=== PATIENT | female | born 1990 | race Two or more races ===

== ENCOUNTER 2024-10-01 00:51 | Observation (INO) | payer MEDICAID, OTHER ==
--- NOTE | 2024-10-01 03:21 | DVHDS2 ---
Physician Discharge Progress N Final Diagnosis: False labor Secondary Diagnosis: Anemia in Problems List: (1) False labor after 37 completed weeks of gestation (2) Multigravida (3) JULIAN (amniotic fluid index) borderline low (4) Anemia affecting in third trimester Commentary: Commentary Subjective 33yo G2,(1,0,0,1) IUP 37w5d Presents to the Place with report of lower supra pubic pain. Denies VB/LOF/ States mild cramping Reports pain 8/10 with contractions. Being treated for Bacterial Vaginosis with ANBX She reports normal movements, Receives [facility] with [facility] in [place] Reports no past surgery. Hx Spontaneous Vaginal Delivery 9 year ago NST and JULIAN Weekly for Borderline low JULIAN Last previous JULIAN 5.5 Anemia in , last Hgb 8.6 ROS: Neurological: Unremarkable except as noted in Presenting problem/ CC above Respiratory: reports no respiratory symptom, no SOB Cardiovascular: no palpitation, chest pain or easy fatigue : No vaginal or urinary symptom Objective A&O x3, NAD, well groomed. pleasant. Appropriate and normal mood and affect Afebrile, VSS Labs Test 10/01/24 03:00 Range/Units Urine Color Colorless Yellow Urine Clarity Clear Clear Urine pH 6.5 5.0-9.0 Urine Specific [place] 1.007 1.001-1.035 Urine Protein Negative Negative Urine Ketones Negative Negative Urine Blood Negative Negative /uL Urine Nitrite Negative Negative Urine Bilirubin Negative Negative Urine Urobilinogen Normal Negative mg/dL Urine Leukocyte Esterase Negative Negative /uL Urine RBC None seen 0 - 4 /hpf Urine Microscopic WBC 1 0-5 /HPF Urine Squamous Epithelial Cells Few <5 /hpf Urine Bacteria Few H None Seen /hpf Urine Glucose Normal Normal mg/dL Vaginal WBC (Wet Prep) Rare Vaginal RBC (Wet Prep) Rare Vaginal Epithelial Cells (Wet Prep) Few Vaginal Bacteria (Wet Prep) Few Vaginal Trichomonas (Wet Prep) Not present Vaginal Yeast (Wet Prep) None seen Vaginal Clue Cells (Wet Prep) Rare Physical: Respiration unlabored Heart and lungs sounds: normal Abdomen: Gravid, non-tender to palpation. Extremities: No edema SVE: FT/Thick/High Assessment: IUP at 37w5d Supra Pubic pain Category I FHR tracing FHR 130 Moderate Variability Accels 15 bpm X 15 bpm Decels none noted Uterine: Contractions Q6 min lasting 40-60 seconds Sherrill Payne contractions Plan: Wet Mount and U/A Wet mount results rare clue cells U/A Clear Discharge home Keep scheduled appointment with OB provider as scheduled NST / JULIAN Weekly for Low JULIAN Pt education PTL/FKC/PRe-E , verbalizes understanding Copy of record , Evaluate GBS status in Condition on Discharge: Stable Disposition: Home Discharge Instructions: Diet: Regular Activity: No Restrictions, As Tolerated Medications: [place] Percribed ANBX for BV Follow Up Care: Discharge Statement: Routine care with [facility] Discharge Care Plan Problem Pain Supra Pubic Pelvic pain Goals Pain relieved, Reduction of pain Know Procedures, Know Self care, Know Condition Instructions Notify MD of any issues, Keep list of meds w/ you Visit Coding OBGYN Date of Service: Oct 01, 2024 Billing Provider: PERCY MUSE CNM SPLUNK DEVELOPER Common Visit Codes: 16301-MROUFRY OBS CARE (MOD) PERCY MUSE 2024 03:21
--- NOTE | 2024-10-01 03:35 | DVH ---
LIMITED OB ULTRASOUND > 14 WKS: HISTORY: EFW. L PNC TECHNIQUE: Multiple real-time grayscale images of the gravid uterus with duplex Doppler color flow an d M-mode spectral analysis. COMPARISON: None FINDINGS: Single intrauterine gestation. heart rate measures 148-150 beats per minute. Presentation is cephalic. Placenta is anterior without evidence of previa. Biophysical profile: breathin/2 movement: 2/2 tone: 2/2 Amniotic fluid: 2/2 JULIAN: 5.5 cm biometry: BPD: 9.3 cm, 38 weeks 0 days HC: 33.2 cm, 37 weeks 6 days AC: 34.2 cm, 38 weeks 1 day FL: 7.3 cm, 37 weeks 1 day EFW: 3323 g, 61st percentile EGA: 37 weeks 6 days, TYRELL 10/16/2024 IMPRESSION: 1. Intrauterine gestation measuring at 37 weeks 6 days (TYRELL 10/16/2024). Clinical and sonographic da eduardo different by 1 day. 2. Normal biophysical profile score of 8/8. 3. Borderline low amniotic fluid index.
[2024-10-01 03:40] LABS: Urine Protein, UAD Negative (Negative)
[2024-10-01 04:31] LABS: Vaginal Trichomonas Not Present
[2024-10-01 04:34] LABS: Vaginal Bacteria Few
[2024-10-01 04:36] LABS: Vaginal Clue Cells Rare; Vaginal Epithelial Cells Few
[2024-10-01] MEDS ORDERED: PREN1TAB71 OR (13:50)
== END 2024-10-01 05:07 | disposition home or self-care (01) ==
LOC: EDBD 00:51 → LDRP 00:51
PROVIDERS: ADMIT Obstetrics & Gynecology; ATTEND Obstetrics & Gynecology
DX: O47.1 False labor at or after 37 completed weeks of gestation (principal); O99.013 Anemia complicating pregnancy, third trimester; D64.9 Anemia, unspecified; O42.92 Full-term premature rupture of membranes, unspecified as to length of time between rupture and onset of labor; O09.523 Supervision of elderly multigravida, third trimester; Z3A.37 37 weeks gestation of pregnancy; Z98.890 Other specified postprocedural states; Z79.899 Other long term (current) drug therapy
CPT/HCPCS: 59025; 76805; 76819; 81001; 81002; 87210; 94760; G0378

== ENCOUNTER 2024-10-01 13:30 | Inpatient (IN) | payer MEDICAID ==
[~2024-10-01] VITALS: Ht 152.4 cm; Wt 73.0 kg
[2024-10-01] MEDS ORDERED: PREN1TAB71 OR (13:50)
[2024-10-01] MEDS ORDERED: LACT. RINGERS/OXYTOCIN 20UNITS 1,000 ML IV SCH (14:45)
[2024-10-01] MEDS ORDERED: BUTORPHANOL TARTRATE 2 MG/1 ML VIAL IV PRN ×2 (14:45)
[2024-10-01] MEDS ORDERED: LIDOCAINE 2%HCL (LOCAL ANESTH.) INJ 20ML MDV IJ PRN (14:45)
[2024-10-01] MEDS ORDERED: TERBUTALINE SULFATE 1 MG/ML 1ML VIAL SC PRN (14:45)
[2024-10-01] MEDS: PHISODERM TOP SOLN 240ML BTL TOP PRN (15:15)
[2024-10-01] MEDS: WITCH HAZEL-GLYCERIN PAD TOP PRN (15:15)
[2024-10-01] MEDS: DERMOPLAST 60ML BOTTLE TOP PRN (15:15)
[2024-10-01] MEDS: LACTATED RINGER'S 1,000 ML IV SCH (15:16)
[2024-10-01] MEDS: PENICILLIN G POT 5MIL/D5 50ML 50 ML IV ONE (15:21)
[2024-10-01 15:33] LABS: Hematocrit 28.6 % (36.0-46.0); Hemoglobin 9.2 g/dL (12.2-16.2); Mean Corpuscular Hemoglobin 22.6 pg (28.0-32.0); Mean Corpuscular Volume 70.3 fL (80.0-100.0); Nucleated Red Blood Cells % 0.0 %
[2024-10-01 15:46] LABS: Alanine Aminotransferase 10 U/L (7-40); Albumin 3.9 g/dL (3.2-4.8); Anion Gap 10 (5-15); BUN/Creatinine Ratio 12.3 (10.0-20.0); Calcium 8.9 mg/dL (8.7-10.4); Chloride 104 mmol/L (98-107); Glucose 76 mg/dL (74-106); Potassium 3.6 mmol/L (3.5-5.1); Total Protein 8.0 g/dL (5.7-8.2)
[2024-10-01 15:47] LABS: Bilirubin, Total 0.4 mg/dL (0.2-1.0)
[2024-10-01 15:52] LABS: Alkaline Phosphatase 308 U/L (46-116); Blood Urea Nitrogen 7 mg/dL (9-23); Carbon Dioxide 20 mmol/L (20-31); Sodium 134 mmol/L (136-145)
[2024-10-01 15:57] LABS: Urine Protein, UAD TRACE (Negative)
[2024-10-01 15:59] LABS: INR 1.01 (0.9-1.15); Partial Thromboplastin Time 28.9 SEC (24.5-34.5); Prothrombin Time 10.7 sec (9.3-11.8)
[2024-10-01 16:02] LABS: Amphetamine Screen, Urine Neg (NEGATIVE); Barbiturate Scree,Urine Neg (NEGATIVE); Benzodiazephine Screen, Urine Neg (NEGATIVE); Opiate Scree,Urine Neg (NEGATIVE); Phencyclidine Screen, Urine Neg (NEGATIVE)
[2024-10-01 16:03] LABS: Cannabinoid Screen, Urine Neg (NEGATIVE); Cocaine Screen, Urine Neg (NEGATIVE)
--- NOTE | 2024-10-01 16:26 | DVHHP ---
ADMIT DATE: 10/01/2024 CHIEF COMPLAINT: Labor. HISTORY OF PRESENT ILLNESS: The patient is a 33-year-old 3, para 1 with EDC 10/17/2024, estimated gestational age of 37 weeks, admitted for labor. The patient was here last night, was sent out. She returns at 5 cm, 100%, minus 2. She denies having any issues. She has care in [place]. PAST MEDICAL HISTORY: None. PAST SURGICAL HISTORY: None. SOCIAL HISTORY: None. FAMILY HISTORY: None. DAIRY FARMWORKER HISTORY: 1 vaginal delivery. REVIEW OF SYSTEMS: Consistent with HPI. ALLERGIES: No known drug allergies. PHYSICAL EXAM: VITAL SIGNS: Stable, afebrile. HEENT: Within normal limits. CARDIOVASCULAR: Regular rate and rhythm. LUNGS: Clear to auscultation. BREASTS: Symmetrical, no masses. ABDOMEN: Gravid. Positive heart. PELVIC: 5 cm, 90%, -1. EXTREMITIES: No clubbing, cyanosis, or edema. IMPRESSION: Intrauterine at 37 weeks, in labor. PLAN: Expectant vaginal delivery. Informed consent obtained. May augment labor if needed. May have epidural. Flory Paulino DO MZ/EKT TID: [id number] RECEIPT: [id number]
[2024-10-01] MEDS: ceFAZolin 1GM/50ML 50 ML IV SCH (16:32)
--- NOTE | 2024-10-01 17:03 | LDN2 ---
Labor and Delivery Note Date 10/01/24 Age 33 Para 2 AB 1 EDC 9-9 EGA 37wks Diagnosis labor,unknown care Vaginal Delivery: VTX Vacuum Assisted: No Placenta: Spontaneous Sex: Female Apgars 8-9 Nuchal Cord Transected: Yes Amniotic Fluid: Clear Episiotomy: No Extension: No EBL 300ml Labs Laboratory Tests 10/01/24 14:50: Hepatitis B Surface Antigen Negative, HIV (1&2) Antibody Negative Blood Bank 10/01/24 14:50: Blood Type B POSITIVE Complications none Conditions stable Comments/Significant Med Lizbeth spec exam no cxl lac Visit Coding OBGYN Date of Service: Oct 01, 2024 Billing Provider: LINDY SCHWARTZ DO CASTING CARRIER Common Visit Codes: [id number] INP/OBS CARE(HIGH) CASTING CARRIER Procedure Codes: 07019-CZV DELIVERY ONLY LINDY SCHWARTZ DO Oct 01, 2024 17:03
[2024-10-01] MEDS: LACT. RINGERS/OXYTOCIN 20UNITS 500 ML IV ONE ×2 (17:19→17:22)
[2024-10-01] MEDS: IBUPROFEN 600 MG TAB PO PRN (17:53)
[2024-10-01] MEDS ORDERED: PENICILLIN G POTASSIUM 2,500,000 UNITS in D5W 5% 50 ML IV SCH (18:45)
[2024-10-01 23:30] VITALS: BP 111/74; PULSE 68; RESP 16; TEMP 97.9; O2SAT 99
[2024-10-02] MEDS: ACETAMINOPHEN 325 MG TAB PO PRN (00:02)
--- NOTE | 2024-10-02 01:27 | DVHPN2 ---
Progress Note Date Seen: Oct 02, 2024 Subjective S: pt reports no pain, pain is well controlled by PO pain med, denies any headache, blurry vision, epigastric pain, eating and drinking well, ambulating well to the bathroom, reports mild dizziness when she gets out of bed, no BM yet but has voided twice, vital signs Vital Sign Date Time Temp Pulse Resp B/P (MAP) Pulse Ox O2 Delivery O2 Flow Rate FiO2 10/01/24 23:30 97.9 68 16 111/74 (86) 99 97.9 10/01/24 19:30 Room Air Total Intake and Output 10/01/24 10/01/24 10/02/24 15:00 23:00 07:00 Output Total 1700 ml Balance -1700 ml medications Current Medications Medications Dose Ordered Sig/Lorelei Route Start Time Stop Time Status Last Admin Dose Admin Leonard Drummondel 1 pad PRN PRN TOP 10/01/24 14:45 10/01/24 15:15 1 PAD Sodium Lauryl Sulfate 240 ml PRN PRN TOP 10/01/24 14:45 10/01/24 15:15 240 ML Benzocaine 1 applic PRN PRN TOP 10/01/24 14:45 10/01/24 15:15 1 APPLIC Ibuprofen 600 mg Q6HP PRN PO 10/01/24 17:30 10/01/24 17:53 600 MG Acetaminophen 650 mg Q4HP PRN PO 10/01/24 17:30 10/02/24 00:02 650 MG laboratory and microbiology Laboratory Tests 10/01/24 14:50 Test 10/01/24 14:50 Range/Units Serum Glucose 76 74-106 mg/dL Objective O: VSS Chest: heart and lung sounds normal. Abd soft, non-tender, fundus firm, BS, no rebound or guarding, Intact perineum BLE: Non-tender, no edema Lochia - minimal Labs reviewed Problems(with codes): (1) Multigravida (2) Anemia affecting in third trimester (3) False labor after 37 completed weeks of gestation Assessment/Plan A: 33yo [id number] s/p doing well. Rh status + Rubella status pending Pain control with PO medications Bowel regimen: increase fluid intake, fiber in diet, laxative as needed P: continue with care Plan discussed with: Patient, Spouse JEFF HERNANDEZ,FAVOUR Oct 02, 2024 01:27
[2024-10-02 03:30] VITALS: BP 120/80; PULSE 66; RESP 16; TEMP 98; O2SAT 99
[2024-10-02 07:00] VITALS: BP 119/84; PULSE 71; RESP 16; TEMP 97.5; O2SAT 95
[2024-10-02 11:00] VITALS: BP 110/83; PULSE 72; RESP 20; TEMP 98.4; O2SAT 99
[2024-10-02 15:00] VITALS: BP 121/81; PULSE 81; RESP 16; TEMP 98.3; O2SAT 97
--- NOTE | 2024-10-02 16:44 | DVHINCON2 ---
Date of Service if different f: Oct 02, 2024 Time of Service: 16:44 Consultation ([place]) Labs Laboratory Tests Test 10/01/24 00:00 10/01/24 14:50 Urine Color Yellow (Yellow) Urine Clarity Turbid (Clear) Urine pH 6.5 (5.0-9.0) Urine Specific [place] 1.022 (1.001-1.035) Urine Protein Trace (Negative) Urine Ketones 1+ (Negative) Urine Blood 1+ /uL (Negative) Urine Nitrite Negative (Negative) Urine Bilirubin Negative (Negative) Urine Urobilinogen Normal mg/dL (Negative) Urine Leukocyte Esterase 2+ /uL (Negative) Urine RBC 2 /hpf (0 - 4) Urine Microscopic WBC 13 /HPF (0-5) Urine Squamous Epithelial Cells Mod /hpf (<5) Urine Bacteria Few /hpf (None Seen) Urine Mucus Few (None Seen) Urine Glucose Normal mg/dL (Normal) Urine Opiates Screen Neg (NEGATIVE) Urine Fentanyl Screen Neg (NEGATIVE) Urine Barbiturates Screen Neg (NEGATIVE) Urine Phencyclidine Screen Neg (NEGATIVE) Urine Amphetamines Screen Neg (NEGATIVE) Urine Benzodiazepines Screen Neg (NEGATIVE) Urine Cocaine Screen Neg (NEGATIVE) Urine Cannabinoids Screen Neg (NEGATIVE) White Blood Count 19.2 10^3/uL (4.4-10.8) Red Blood Count 4.07 10^6/uL (4.0-5.20) Hemoglobin 9.2 g/dL (12.2-16.2) Hematocrit 28.6 % (36.0-46.0) Mean Corpuscular Volume 70.3 fL (80.0-100.0) Mean Corpuscular Hemoglobin 22.6 pg (28.0-32.0) Mean Corpuscular Hemoglobin Concent 32.2 g/dL (32.0-36.0) Red Cell Distribution Width 19.9 % (11.8-14.3) Platelet Count 524 10^3/uL (140-450) Mean Platelet Volume 8.0 fL (6.9-10.8) Neutrophils (%) (Auto) 85.4 % (37.0-80.0) Lymphocytes (%) (Auto) 10.4 % (10.0-50.0) Monocytes (%) (Auto) 3.9 % (0.0-12.0) Eosinophils (%) (Auto) 0.1 % (0.0-7.0) Basophils (%) (Auto) 0.2 % (0.0-2.0) Neutrophils # (Auto) 16.4 10 ^3/uL (1.6-8.6) Lymphocytes # (Auto) 2.0 10 ^3/uL (0.4-5.4) Monocytes # (Auto) 0.7 10 ^3/uL (0-1.3) Eosinophils # (Auto) 0 10 ^3/uL (0-0.8) Basophils # (Auto) 0 10 ^3/uL (0-0.2) Nucleated Red Blood Cells 0.0 % Prothrombin Time 10.7 sec (9.3-11.8) Prothromb Time International Ratio 1.01 (0.9-1.15) Activated Partial Thromboplast Time 28.9 SEC (24.5-34.5) Sodium Level 134 mmol/L (136-145) Potassium Level 3.6 mmol/L (3.5-5.1) Chloride Level 104 mmol/L (98-107) Carbon Dioxide Level 20 mmol/L (20-31) Anion Gap 10 (5-15) Blood Urea Nitrogen 7 mg/dL (9-23) Creatinine 0.57 mg/dL (0.550-1.02) Glomerular Filtration Rate Calc 125 mL/min (>90) BUN/Creatinine Ratio 12.3 (10.0-20.0) Serum Glucose 76 mg/dL (74-106) Calcium Level 8.9 mg/dL (8.7-10.4) Total Bilirubin 0.4 mg/dL (0.2-1.0) Aspartate Amino Transf (AST/SGOT) 18 U/L (13-40) Alanine Aminotransferase (ALT/SGPT) 10 U/L (7-40) Alkaline Phosphatase 308 U/L (46-116) Total Protein 8.0 g/dL (5.7-8.2) Albumin 3.9 g/dL (3.2-4.8) Treponema pallidum Antibody Non-reactive (Negative) Hepatitis B Surface Antigen Negative (Negative) Hepatitis C Antibody Negative (Negative) HIV (1&2) Antibody Negative (Negative) Rubella Antibody Positive Vitals Vital Signs Date Time Temp Pulse Resp B/P (MAP) Pulse Ox O2 Delivery O2 Flow Rate FiO2 10/02/24 15:00 98.3 81 16 121/81 (94) 97 98.3 10/02/24 07:00 Room Air 0.0 Current medications Current Medications Medications Dose Ordered Sig/Lorelei Route Start Time Stop Time Status Last Admin Dose Admin Leonard Barney 1 pad PRN PRN TOP 10/01/24 14:45 10/01/24 15:15 1 PAD Sodium Lauryl Sulfate 240 ml PRN PRN TOP 10/01/24 14:45 10/01/24 15:15 240 ML Benzocaine 1 applic PRN PRN TOP 10/01/24 14:45 10/01/24 15:15 1 APPLIC Ibuprofen 600 mg Q6HP PRN PO 10/01/24 17:30 10/02/24 11:27 600 MG Acetaminophen 650 mg Q4HP PRN PO 10/01/24 17:30 10/02/24 07:38 650 MG PSYCHIATRY CONSULTATION INITIAL EVALUATION REASON FOR CONSULT: Per protocol, consult required, scored 11 on screening. HPI: Pt says she is feeling good today. Pt denies feelings depressed currently. She was going through something, which has now resolved. Pt denies SI, HI. This is her 2nd child, 1st is 9yo. Pt denies current symptoms of ulysses or psychosis. She denies access to firearms. She has good support at home, lives with her mother. She denies any specific stressors at this time. PSYCHIATRIC HISTORY: DIAGNOSIS: Anxiety, No history ADMISSIONS: None prior MEDICATION TRIALS: None prior OUTPATIENT CARE: None currently. THERAPY: None currently SI/SELF-INJURY/SUICIDE ATTEMPT: None prior SUBSTANCE USE: None RELEVANT MEDICAL HISTORY: None SOCIAL HISTORY: Pt lives with mom ALLERGIES: none MENTAL STATUS EXAMINATION: Fair appearing, well groomed. Good EC. Calm, cooperative, pleasant. Speech/TP nl, linear, goal directed. Mood good, affect euthymic, nl range. Denies SI,HI. No perceptual disturbance. Insight, judgement good. DIAGNOSIS: Adjustment Disorder, Unspecified ASSESSMENT: 33yo W, just delivered 2nd child, h/o anxiety, no prior episodes of depression, who currently denies symptoms of depression, denies significant anxiety. Currently, pt does not meet criteria for a primary mood disorder. No outpatient psychiatric follow up indicated at this time. RECOMMENDATIONS: 1.LEGAL: No 5150 indicated 2.DISPOSITION: No inpatient psychiatry indicated 3.MEDICATIONS: No meds indicated JAMARI NUNEZ MD Oct 02, 2024 16:44
[2024-10-02 19:30] VITALS: BP 116/86; PULSE 86; RESP 16; TEMP 98.1; O2SAT 98
[2024-10-02 23:17] VITALS: BP 118/87; PULSE 71; RESP 16; TEMP 98.1; O2SAT 98
[2024-10-03 03:00] VITALS: BP 118/80; PULSE 73; RESP 16; TEMP 98.1; O2SAT 99
--- NOTE | 2024-10-03 06:14 | DVHDS2 ---
Discharge Summary Date of Admission Oct 01, 2024 at 14:29 Date of Discharge: Oct 03, 2024 Admitting Diagnosis Labor Wounds: None Labs/Diagnostic Data: Laboratory Results Test 10/01/24 14:50 10/01/24 00:00 White Blood Count 19.2 10^3/uL (4.4-10.8) Red Blood Count 4.07 10^6/uL (4.0-5.20) Hemoglobin 9.2 g/dL (12.2-16.2) Hematocrit 28.6 % (36.0-46.0) Mean Corpuscular Volume 70.3 fL (80.0-100.0) Mean Corpuscular Hemoglobin 22.6 pg (28.0-32.0) Mean Corpuscular Hemoglobin Concent 32.2 g/dL (32.0-36.0) Red Cell Distribution Width 19.9 % (11.8-14.3) Platelet Count 524 10^3/uL (140-450) Mean Platelet Volume 8.0 fL (6.9-10.8) Neutrophils (%) (Auto) 85.4 % (37.0-80.0) Lymphocytes (%) (Auto) 10.4 % (10.0-50.0) Monocytes (%) (Auto) 3.9 % (0.0-12.0) Eosinophils (%) (Auto) 0.1 % (0.0-7.0) Basophils (%) (Auto) 0.2 % (0.0-2.0) Neutrophils # (Auto) 16.4 10 ^3/uL (1.6-8.6) Lymphocytes # (Auto) 2.0 10 ^3/uL (0.4-5.4) Monocytes # (Auto) 0.7 10 ^3/uL (0-1.3) Eosinophils # (Auto) 0 10 ^3/uL (0-0.8) Basophils # (Auto) 0 10 ^3/uL (0-0.2) Nucleated Red Blood Cells 0.0 % Prothrombin Time 10.7 sec (9.3-11.8) Prothrombin Time INR 1.01 (0.9-1.15) Activated Partial Thromboplast Time 28.9 SEC (24.5-34.5) Sodium Level 134 mmol/L (136-145) Potassium Level 3.6 mmol/L (3.5-5.1) Chloride Level 104 mmol/L (98-107) Carbon Dioxide Level 20 mmol/L (20-31) Anion Gap 10 (5-15) Blood Urea Nitrogen 7 mg/dL (9-23) Creatinine 0.57 mg/dL (0.550-1.02) Glomerular Filtration Rate Calc 125 mL/min (>90) BUN/Creatinine Ratio 12.3 (10.0-20.0) Serum Glucose 76 mg/dL (74-106) Calcium Level 8.9 mg/dL (8.7-10.4) Total Bilirubin 0.4 mg/dL (0.2-1.0) Aspartate Amino Transferase (AST) 18 U/L (13-40) Alanine Aminotransferase (ALT) 10 U/L (7-40) Alkaline Phosphatase 308 U/L (46-116) Total Protein 8.0 g/dL (5.7-8.2) Albumin 3.9 g/dL (3.2-4.8) Treponema pallidum Antibody Non-reactive (Negative) Hepatitis B Surface Antigen Negative (Negative) Hepatitis C Antibody Negative (Negative) HIV (1&2) Antibody Negative (Negative) Rubella Antibody Positive Urine Color Yellow (Yellow) Urine Clarity Turbid (Clear) Urine pH 6.5 (5.0-9.0) Urine Specific [place] 1.022 (1.001-1.035) Urine Protein Trace (Negative) Urine Ketones 1+ (Negative) Urine Blood 1+ /uL (Negative) Urine Nitrite Negative (Negative) Urine Bilirubin Negative (Negative) Urine Urobilinogen Normal mg/dL (Negative) Urine Leukocyte Esterase 2+ /uL (Negative) Urine RBC 2 /hpf (0 - 4) Urine Microscopic WBC 13 /HPF (0-5) Urine Squamous Epithelial Cells Mod /hpf (<5) Urine Bacteria Few /hpf (None Seen) Urine Mucus Few (None Seen) Urine Glucose Normal mg/dL (Normal) Urine Opiates Screen Neg (NEGATIVE) Urine Fentanyl Screen Neg (NEGATIVE) Urine Barbiturates Screen Neg (NEGATIVE) Urine Phencyclidine Screen Neg (NEGATIVE) Urine Amphetamines Screen Neg (NEGATIVE) Urine Benzodiazepines Screen Neg (NEGATIVE) Urine Cocaine Screen Neg (NEGATIVE) Urine Cannabinoids Screen Neg (NEGATIVE) Other Laboratory Tests 10/01/24 14:50 Brief Hx & Hospital Course: Patient had spontaneous vaginal delivery 3757 weeks female no sequelae Consults/Reason for consult None Operations or Procedures None Condition at Discharge: Good Final Diagnosis/Problems List female Discharge Disposition: Home Discharge Instruct/Medications Diet: Regular Activity: Light activity (Pelvic rest 6 weeks) Follow Up/Referral: See primary OB physician two weeks or PRN Miscellaneous Medications Vit W/ Ferrous Fumara (Pnv Plus Multivi), 1 OR, (Reported) Discharge Statement: "Patient was advised to return to the ER or call 911 if any headaches, dizziness, shortness of breath, chest pain, abdominal pain, bleeding, fevers, or worsening of medical condition. Patient was counseled about treatment plan, medications, possible side effects, patientverbalized understanding. All questions were answered to the best of my ability. This discharge took greater then 30 minutes in planning, reviewing documentation, counseling the patient, and discussing with other team members." ASSESSMENT ASSESSMENT Assessment Visit Coding OBGYN Date of Service: Oct 03, 2024 Billing Provider: STEPH PORTILLO DO RV REPAIRER Common Visit Codes: [id number] INP/OBS CARE (HIGH) RV REPAIRER Procedure Codes: 88963-LKN DEL INCLUDING STEPH PORTILLO DO Oct 03, 2024 06:14
[2024-10-03 07:00] VITALS: BP 118/80; PULSE 67; RESP 16; TEMP 97.9; O2SAT 97
[2024-10-03 11:10] VITALS: BP 120/86; PULSE 77; RESP 16; TEMP 97.9; O2SAT 97
[2024-10-03 15:00] VITALS: BP 131/87; PULSE 76; RESP 18; TEMP 98; O2SAT 100
== END 2024-10-03 17:45 | disposition home or self-care (01) | DRG 560 ==
LOC: LDRP 13:30 → OBSVTOIN 14:29 → LDRP 10-02 13:35
PROVIDERS: ADMIT Obstetrics & Gynecology; ATTEND Obstetrics & Gynecology
PROC: 10E0XZZ Delivery of Products of Conception, External Approach (ICD-10-PCS; principal; 2024-10-01)
DX: O69.81X0 Labor and delivery complicated by cord around neck, without compression, not applicable or unspecified (principal); Z37.0 Single live birth; O99.344 Other mental disorders complicating childbirth; D64.9 Anemia, unspecified; F43.22 Adjustment disorder with anxiety; Z3A.37 37 weeks gestation of pregnancy; O99.02 Anemia complicating childbirth
CPT/HCPCS: 36415; 59025; 59409; 80053; 80307; 81001; 81002; 85025; 85610; 85730; 86703; 86762; 86780; 86803; 86850; 86900; 86901; 87340; 94760; 94762; 96360; 96361; 96365; 96366; G0378; J2540; J2590; J7060